=== PATIENT | male | born 1945 | race Caucasian/White ===

== ENCOUNTER 2021-07-19 21:47 | Inpatient (IN) | payer OTHER, MEDICARE ==
[~2021-07-19] VITALS: Ht 175.3 cm; Wt 104.2 kg
[~2021-07-19 21:47] MED LIST: ALOG25TA PO; AMLO10TA48 PO; ASPI-1071 PO; CARB15DR EACHEYE; CARV-50 PO; CLOT15CR10 TOP; EMPA10TA PO; FINA5TAB11 PO; FLO0.4C PO; FLUT16SP2 BOTHNARES; FURO-149 PO; LEVO137T2 PO; LISI40TA13 PO; MAGN400C PO; METF-436 PO; OMEP40CA21 PO; OXYB10TA4 PO; PRAV40TA3 PO; SAW450CA7 PO; SENN-263 PO; SPIR25TA5 PO
[2021-07-19 23:52] LABS: BASOPHILS % (AUTO) 0.6 % (0-1); EOSINOPHILS # (AUTO) 0.2 X10'3 (0-0.9); EOSINOPHILS % (AUTO) 2.5 % (0-6); HEMATOCRIT 40.9 % (42.0-52.0); HEMOGLOBIN 13.6 g/dl (14.0-17.9); LYMPHOCYTES # (AUTO) 1.4 X10'3 (1.1-4.8); LYMPHOCYTES % (AUTO) 16.5 % (21-51); MEAN CORPUSCULAR HEMOGLOBIN 28.2 PG (27.0-31.0); MEAN CORPUSCULAR HGB CONC 33.2 g/dL (33.0-36.5); MEAN CORPUSCULAR VOLUME 84.9 FL (78-98); MEAN PLATELET VOLUME 8.4 FL (7.4-10.4); MONOCYTES # (AUTO) 0.6 X10'3 (0-0.9); MONOCYTES % (AUTO) 7.5 % (2-12); NEUTROPHILS % (AUTO) 72.9 % (42-75); PLATELET COUNT 224 X10'3 (140-440); RED BLOOD COUNT 4.82 X10'6 (4.70-6.10); RED CELL DISTRIBUTION WIDTH 15.1 % (11.5-14.5); WHITE BLOOD COUNT 8.3 X10'3 (4.5-11.0)
[2021-07-20 00:31] LABS: ALANINE AMINOTRANSFERASE 36 U/L (12-78); ALBUMIN 3.3 G/DL (3.4-5.0); ALBUMIN/GLOBULIN RATIO 0.8 (1.1-1.5); ALKALINE PHOSPHATASE 47 IU/L (46-116); ANION GAP 11 (8-16); ASPARTATE AMINO TRANSFERASE 28 U/L (10-37); BILIRUBIN,TOTAL 0.3 MG/DL (0.1-1.0); BLOOD UREA NITROGEN 34 MG/DL (7-18); BUN/CREATININE RATIO 23.6 (5.4-32.0); CALCIUM 8.8 MG/DL (8.5-10.1); CHLORIDE 110 MMOL/L (99-107); CREATININE 1.44 MG/DL (0.60-1.10); GLUCOSE 172 MG/DL (70-104); POTASSIUM 3.8 MMOL/L (3.5-5.1); SODIUM 145 MMOL/L (135-145); TOTAL CARBON DIOXIDE 24.5 MMOL/L (24-32); TOTAL PROTEIN 7.3 G/DL (6.4-8.2); eGFR 48 ML/MIN
[2021-07-20 00:45] LABS: C-REACTIVE PROTEIN 1.55 MG/DL (0.0-0.5); FERRITIN 221 NG/ML (26-388); LACTATE DEHYDROGENASE 232 U/L (85-227)
[2021-07-20 02:23] LABS: D-DIMER 10.62 MG/L FEU (0-0.50)
[2021-07-20] MEDS ORDERED: mag hydrox/Alum hydrox/simeth 30ml oral suspension PO PRN (05:50)
[2021-07-20] MEDS ORDERED: magnesium 4gm in 100ml NS 100 ML IV PRN (05:50)
[2021-07-20] MEDS ORDERED: magnesium Cl slow-release 64mg tablet PO PRN (05:50)
[2021-07-20] MEDS ORDERED: magnesium 2GM in 50ml NS 50 ML IV PRN (05:50)
[2021-07-20] MEDS ORDERED: ondansetron/PF 4mg/2ml inj IV PRN ×2 (05:50→15:50)
[2021-07-20] MEDS ORDERED: potassium Cl 20 mEq SR tablet PO PRN ×2 (05:50)
[2021-07-20] MEDS ORDERED: potassium Cl 40MEQ/1/2NS 520ml 520 ML IV PRN ×2 (05:50)
[2021-07-20] MEDS ORDERED: acetaminophen 325mg tablet PO PRN ×4 (05:50→15:50)
[2021-07-20] MEDS ORDERED: heparin 10,000 units/1 ML INJ IV ONE (06:10)
[2021-07-20] MEDS ORDERED: heparin 10,000 units/1 ML INJ IV PRN (06:10)
[2021-07-20] MEDS ORDERED: iohexol 350MG/ML 100ml bottle IV ONE (06:15)
[2021-07-20] MEDS ORDERED: glucagon, human recombinant 1mg kit SUBCUT PRN (06:25)
[2021-07-20] MEDS ORDERED: dextrose 50%-water 50ml dispensing syringe IV PRN ×2 (06:25)
[2021-07-20] MEDS ORDERED: dextrose ORAL solution 15 GM/59 ML bottle PO PRN ×2 (06:25)
[2021-07-20] MEDS ORDERED: insulin Lispro (HumaLOG) vial - multi-dose SQ SCH (06:25)
[2021-07-20] MEDS ORDERED: MESSAGE TO PHARMACY PO ONE (06:25)
--- NOTE | 2021-07-20 06:30 | NUR ---
Patient back from CT at this time.
[2021-07-20] MEDS: heparin 25,000 UNIT/250ml bag 250 ML IV SCH ×2 (07:17→21:00)
--- NOTE | 2021-07-20 07:17 | NUR ---
Sadia burciaga in [facility] - 07/20/21 at 0718 by [employer] plant maintenance technician at bedside at this time.
[2021-07-20 07:52] LABS: PARTIAL THROMBOPLASTIN TIME 26 SECONDS (22-32)
[2021-07-20] MEDS ORDERED: heparin, porcine 5000 units/ml vial SQ SCH (08:00)
[2021-07-20] MEDS: K and/or MAG REPLACEMENT MC SCH ×2 (08:00→20:00)
[2021-07-20] MEDS ORDERED: furosemide 40mg/4ml inj IV SCH (08:00)
[2021-07-20] MEDS: MESSAGE TO NURSING PO SCH ×2 (08:00→20:00)
[2021-07-20] MEDS ORDERED: PERFLUTREN PROTEIN-A MICROSPHR (Optison) 0.22 MG/ML 3ML VIAL IV ONE (08:05)
[2021-07-20] MEDS ORDERED: PEG 400/HYPROMELLOSE/GLYCERIN 15ml bottle EACHEYE PRN (12:20)
[2021-07-20] MEDS ORDERED: fluticasone nasal spray 16GM bottle NS PRN (12:20)
[2021-07-20] MEDS ORDERED: LIDOcaine 2% 10ml TOPICAL JELLY (Urojet) TP ONE (15:50)
[2021-07-20] MEDS ORDERED: morphine 4 MG/ML inj SYRINge IV PRN (15:50)
[2021-07-20] MEDS ORDERED: magnesium hydroxide 30ml (MOM) UD suspension PO PRN (15:50)
[2021-07-20] MEDS ORDERED: morphine 2 MG/ML inj. syringe IV PRN (15:50)
[2021-07-20] MEDS ORDERED: albuterol 2.5 MG/3 ML nebule NEB PRN (15:50)
[2021-07-20] MEDS ORDERED: alteplase 100MG inj. 100 ML IV ONE (16:00)
[2021-07-20] MEDS: magnesium oxide 400mg tablet PO SCH (20:00)
[2021-07-20 20:10] VITALS: BP 139/68
[2021-07-20 20:28] LABS: PARTIAL THROMBOPLASTIN TIME 37 SECONDS (22-32)
[2021-07-20] MEDS: normal saline 1000ml 1,000 ML IV SCH (20:28)
[2021-07-20] MEDS ORDERED: pravastatin 40mg tablet PO SCH (21:00)
[2021-07-20] MEDS ORDERED: insulin glargine (Lantus) pen - multi-dose SQ SCH (21:00)
[2021-07-20] MEDS: carVEDilol 12.5mg tablet PO SCH (21:37)
[2021-07-20] MEDS: sennosides 8.6mg tablet PO SCH (21:38)
[2021-07-20 22:00] VITALS: BP 130/60
[2021-07-21] MEDS: famotidine/PF 10 mg/ml inj IV SCH ×2 (00:37→09:22)
[2021-07-21] MEDS: normal saline 1000ml 1,000 ML IV SCH (05:10)
[2021-07-21] MEDS: heparin 25,000 UNIT/250ml bag 250 ML IV SCH (05:25)
--- NOTE | 2021-07-21 06:26 | NUR ---
Patient in room PCU 3013. I have received report from Vanesa DEGROOT and had the opportunity to ask questions and assume patient care. Pt alert to voice, sitting high fowlers in bed, skin check completed. mild redness to right groin. safety measures in place. no s/sx acute distress.
[2021-07-21 07:00] VITALS: BP 145/68
[2021-07-21] MEDS ORDERED: levoTHYROXINE 25mcg tablet PO SCH (07:00)
[2021-07-21] MEDS ORDERED: levoTHYROXINE 112mcg tablet PO SCH (07:00)
[2021-07-21 07:21] LABS: BASOPHILS # (AUTO) 0.1 X10'3 (0-0.2); BASOPHILS % (AUTO) 0.9 % (0-1); EOSINOPHILS # (AUTO) 0.3 X10'3 (0-0.9); HEMATOCRIT 39.2 % (42.0-52.0); LYMPHOCYTES # (AUTO) 1.9 X10'3 (1.1-4.8); LYMPHOCYTES % (AUTO) 31.7 % (21-51); MEAN CORPUSCULAR HEMOGLOBIN 28.3 PG (27.0-31.0); MEAN CORPUSCULAR HGB CONC 33.1 g/dL (33.0-36.5); MEAN CORPUSCULAR VOLUME 85.5 FL (78-98); MEAN PLATELET VOLUME 8.3 FL (7.4-10.4); MONOCYTES # (AUTO) 0.5 X10'3 (0-0.9); MONOCYTES % (AUTO) 8.4 % (2-12); NEUTROPHILS # (AUTO) 3.3 X10'3 (1.8-7.7); PLATELET COUNT 205 X10'3 (140-440); RED BLOOD COUNT 4.58 X10'6 (4.70-6.10); RED CELL DISTRIBUTION WIDTH 14.9 % (11.5-14.5); WHITE BLOOD COUNT 6.1 X10'3 (4.5-11.0)
[2021-07-21 07:35] LABS: ALANINE AMINOTRANSFERASE 27 U/L (12-78); ALBUMIN 3.1 G/DL (3.4-5.0); ALBUMIN/GLOBULIN RATIO 0.9 (1.1-1.5); ALKALINE PHOSPHATASE 47 IU/L (46-116); ANION GAP 12 (8-16); ASPARTATE AMINO TRANSFERASE 16 U/L (10-37); BILIRUBIN,TOTAL 0.5 MG/DL (0.1-1.0); BLOOD UREA NITROGEN 27 MG/DL (7-18); BUN/CREATININE RATIO 27.3 (5.4-32.0); CALCIUM 8.3 MG/DL (8.5-10.1); CHLORIDE 111 MMOL/L (99-107); CREATININE 0.99 MG/DL (0.60-1.10); GLUCOSE 121 MG/DL (70-104); MAGNESIUM 2.3 MG/DL (1.5-2.4); POTASSIUM 3.5 MMOL/L (3.5-5.1); SODIUM 147 MMOL/L (135-145); TOTAL CARBON DIOXIDE 24.4 MMOL/L (24-32); TOTAL PROTEIN 6.5 G/DL (6.4-8.2); eGFR 74 ML/MIN
[2021-07-21] MEDS ORDERED: finasteride 5mg tablet PO SCH (08:00)
[2021-07-21] MEDS: MESSAGE TO NURSING PO SCH (08:00)
[2021-07-21] MEDS ORDERED: SAW PALMETTO FRUIT 450 MG PO SCH (08:00)
[2021-07-21] MEDS ORDERED: tamsulosin 0.4mg capsule PO SCH (08:00)
[2021-07-21] MEDS ORDERED: amLODIPine 5mg tablet PO SCH (08:00)
[2021-07-21] MEDS ORDERED: spironolactone 25 MG tablet PO SCH ×2 (08:00→09:32)
[2021-07-21] MEDS ORDERED: pantoprazole 40mg Tablet.DR PO SCH (08:00)
[2021-07-21] MEDS ORDERED: lisinopril 20mg tablet PO SCH (08:00)
[2021-07-21] MEDS ORDERED: CLOTRIMAZOLE TP SCH (08:00)
[2021-07-21] MEDS ORDERED: oxybutynin 5mg tablet PO SCH (08:00)
[2021-07-21] MEDS: K and/or MAG REPLACEMENT MC SCH (08:00)
[2021-07-21] MEDS ORDERED: furosemide 40mg/4ml inj IV SCH (08:00)
--- NOTE | 2021-07-21 08:07 | NUR ---
pt with conflicting diet orders and needs telemetry order. "re: Keron Trna: [id number]: Pt with PE on heparin. may i please have quality assurance monitor chassis orders? also, there is NPO diet and heart healthy diet. please advise. -Parul #[id number]" Dr. sheriff called back immediately. new order for heart healthy diet and telemetry.
[2021-07-21] MEDS ORDERED: benzonatate 100mg capsule PO PRN (09:10)
[2021-07-21] MEDS: magnesium oxide 400mg tablet PO SCH (09:19)
[2021-07-21] MEDS: sennosides 8.6mg tablet PO SCH (09:21)
[2021-07-21] MEDS: carVEDilol 12.5mg tablet PO SCH (09:22)
--- NOTE | 2021-07-21 09:30 | NUR ---
paged pharmacy regarding spironolactone without bar code to scan. "good morning. pt's spironolactone bottle you guys sent does not have a bar code to scan, thus i can not scan it. my charge nurse wants a bar code to scan before administration. Thanks, -Parul #[id number]"
[2021-07-21 11:00] VITALS: BP 127/62
--- NOTE | 2021-07-21 12:02 | NUR ---
vascular and ultrasound paged. "RE: Keron Tran: [id number]: Dr. Nguyen ordered BLE venous studies. please let me know if order needs to be clarified. he wants vascular ultrasound. Thanks, Parul"
[2021-07-21] MEDS ORDERED: clotrimazole topical cream 15gm tube TP SCH (14:00)
--- NOTE | 2021-07-21 14:38 | NUR ---
PAGER ID: [phone] MESSAGE: [email or web address], VASCULAR IS WORKING ON REPORT NOW, CHECK FOR IT IN 15-20 MINMUTES. THX
[2021-07-21 15:00] VITALS: BP 124/59
[2021-07-21] MEDS ORDERED: APIX5TAB3 PO (15:14)
[2021-07-21] MEDS ORDERED: heparin 25,000 UNIT/250ml bag 250 ML IV SCH (15:16)
--- NOTE | 2021-07-21 16:00 | NUR ---
Pt stable for discharge per MD order. All discharge instructions reviewed with patient and all questions answered. [facility] faxed to [place] [facility]. hard copy sent with pt. PIV discontinued. Cannula intact. rn relief charge discontinued. Belongings collected and sent with pt. pt wheeled to [facility] where he left in private vehicle. pt let without SOB, no s/sx acute distress.
[2021-07-21] MEDS ORDERED: famotidine 20mg tablet PO SCH (20:00)
== END 2021-07-21 16:00 | disposition home or self-care (01) | DRG 175 ==
LOC: ER 21:48 → ED HOLD 07-20 05:54 → PCU 3S 07-20 20:09
PROVIDERS: ADMIT Internal Medicine; ATTEND Internal Medicine
PROC: 3E03317 Introduction of Other Thrombolytic into Peripheral Vein, Percutaneous Approach (ICD-10-PCS; principal; 2021-07-20)
PROC: B32T1ZZ Computerized Tomography (CT Scan) of Left Pulmonary Artery using Low Osmolar Contrast (ICD-10-PCS; 2021-07-20)
PROC: B3201ZZ Computerized Tomography (CT Scan) of Thoracic Aorta using Low Osmolar Contrast (ICD-10-PCS; 2021-07-20)
PROC: B32S1ZZ Computerized Tomography (CT Scan) of Right Pulmonary Artery using Low Osmolar Contrast (ICD-10-PCS; 2021-07-20)
DX: I26.99 Other pulmonary embolism without acute cor pulmonale (principal); I50.33 Acute on chronic diastolic (congestive) heart failure; J96.01 Acute respiratory failure with hypoxia; N17.0 Acute kidney failure with tubular necrosis; I13.0 Hypertensive heart and chronic kidney disease with heart failure and stage 1 through stage 4 chronic kidney disease, or unspecified chronic kidney disease; I82.432 Acute embolism and thrombosis of left popliteal vein; I82.453 Acute embolism and thrombosis of peroneal vein, bilateral; I82.443 Acute embolism and thrombosis of tibial vein, bilateral; Z20.822 Contact with and (suspected) exposure to COVID-19; E11.22 Type 2 diabetes mellitus with diabetic chronic kidney disease; E11.65 Type 2 diabetes mellitus with hyperglycemia; E78.00 Pure hypercholesterolemia, unspecified; E78.5 Hyperlipidemia, unspecified; E86.0 Dehydration; N18.30 Chronic kidney disease, stage 3 unspecified; I25.2 Old myocardial infarction; Z79.01 Long term (current) use of anticoagulants; Z79.84 Long term (current) use of oral hypoglycemic drugs; Z79.899 Other long term (current) drug therapy; Z79.82 Long term (current) use of aspirin
CPT/HCPCS: 36415; 71045; 71275; 80053; 82728; 82948; 83615; 83735; 83880; 84145; 84484; 85025; 85379; 85384; 85610; 85730; 86140; 87081; 87635; 93005; 93308; 93970; 97110; 97161; 97530; 99285; C9803; G0378; J1644; J1815; J1940; J2997; J3490; J7030; Q9967

== ENCOUNTER 2021-07-24 09:50 | Emergency (ER) | payer OTHER, MEDICARE ==
[~2021-07-24] VITALS: Ht 175.3 cm; Wt 100.0 kg
[~2021-07-24 09:50] MED LIST changes: +APIX5TAB3 PO; -FURO-149 PO
[2021-07-24 10:26] LABS: BASOPHILS % (AUTO) 0.9 % (0-1); EOSINOPHILS # (AUTO) 0.3 X10'3 (0-0.9); EOSINOPHILS % (AUTO) 5.6 % (0-6); HEMOGLOBIN 12.4 g/dl (14.0-17.9); LYMPHOCYTES # (AUTO) 1.4 X10'3 (1.1-4.8); LYMPHOCYTES % (AUTO) 30.2 % (21-51); MEAN CORPUSCULAR HGB CONC 32.6 g/dL (33.0-36.5); MEAN CORPUSCULAR VOLUME 85.8 FL (78-98); MEAN PLATELET VOLUME 7.6 FL (7.4-10.4); MONOCYTES # (AUTO) 0.5 X10'3 (0-0.9); MONOCYTES % (AUTO) 9.9 % (2-12); NEUTROPHILS # (AUTO) 2.4 X10'3 (1.8-7.7); NEUTROPHILS % (AUTO) 53.4 % (42-75); PLATELET COUNT 294 X10'3 (140-440); RED BLOOD COUNT 4.42 X10'6 (4.70-6.10); WHITE BLOOD COUNT 4.6 X10'3 (4.5-11.0)
[2021-07-24 11:06] VITALS: BP 150/64
== END 2021-07-24 11:22 | disposition home or self-care (01) ==
LOC: ER 09:51
DX: R04.2 Hemoptysis (principal); J02.9 Acute pharyngitis, unspecified; I11.0 Hypertensive heart disease with heart failure; I50.9 Heart failure, unspecified; E78.00 Pure hypercholesterolemia, unspecified; E11.9 Type 2 diabetes mellitus without complications; Z98.890 Other specified postprocedural states; Z72.89 Other problems related to lifestyle; Z79.82 Long term (current) use of aspirin; Z79.899 Other long term (current) drug therapy
CPT/HCPCS: 36415; 71045; 85025; 93005; 99285

== ENCOUNTER 2024-12-08 12:41 | Outpatient (CLI) | payer MEDICARE, OTHER ==
[~2024-12-08] VITALS: Ht 175.3 cm; Wt 110.2 kg
[~2024-12-08 12:41] MED LIST changes: +AMLO-888 PO; -AMLO10TA48 PO; -SENN-263 PO; +SENN-360 PO
[2024-12-08] MEDS: albuterol 2.5 MG/3 ML nebule NEB ONE (13:28)
[2024-12-08 13:31] VITALS: PULSE 73; RESP 14; O2SAT 97
[2024-12-08 13:43] VITALS: PULSE 70; RESP 15
== END 2024-12-08 23:59 | disposition home or self-care (01) ==
LOC: RT 12:41
PROVIDERS: ATTEND Chiropractor
DX: R94.2 Abnormal results of pulmonary function studies (principal); J44.9 Chronic obstructive pulmonary disease, unspecified
CPT/HCPCS: 71046; 94060; 94760